=== PATIENT | male | born 1985 | race Two or more races ===

== ENCOUNTER 2024-04-09 16:48 | Emergency (ER) | payer OTHER, SELFPAY ==
[2024-04-09 17:05] VITALS: BP 157/93; PULSE 66; RESP 18; TEMP 37.3; O2SAT 98; BMI 27.3
--- NOTE | 2024-04-09 17:10 | XR_ITS ---
Examination: Right knee 4 views Technique: AP oblique lateral axial right knee 4 views Exam date and time: 11/08/2023 1720 hrs. Indications: Injury to the knee today, knee pain. Findings: No acute fracture No patellar dislocation Small knee effusion Impression: No acute fracture
[2024-04-09] MEDS: IBUPROFEN TAB 400 MG TABLET 800 MG PO (17:49)
--- NOTE | 2024-04-09 17:54 | EDNOTE_ITS ---
<Statement entered by Isabella Figueroa MD - 04/16/24 17:54> As co-signing physician, I was present and available for consult prn. I concur with the plan and care as documented by the midlevel provider. Lower Extremity Injury RME/HPI General Chief Complaint: Extremity Injury, Lower Stated Complaint: RIGHT KNEE PAIN, POSSIBLE DISLOCATION Time Seen by Provider: 04/09/24 17:08 Arrival date/time: 04/09/24 16:48 38-year-old male presents the emergency department today with complaints of right knee pain after playing basketball today patient reports he felt like he may have dislocated his knee and reduced it Limitations: no limitations Related Data Previous Rx's ?Medication ?Instructions ?Recorded Benadryl 25 MG 1 tab PO TIDPRN ALLERGY #1 tab 06/14/15 PEPCID 40MG 1 tab PO DAILY #3 tabs 06/14/15 PREDNISONE 20MG 1 tab PO DAILY #3 tabs 06/14/15 fluoxetine 10 mg capsule (Prozac) 10 mg PO QDAY #30 caps 04/11/22 lorazepam 1 mg tablet (Ativan) 0.5 mg (1/2 x 1 mg) PO BID PRN 04/11/22 agitation #20 tabs hydrocodone 5 mg-acetaminophen 325 1 tab PO BID PRN pain #10 tabs 04/09/24 mg tablet ibuprofen 800 mg tablet 800 mg PO TID PRN pain #30 tabs 04/09/24 Allergies Allergy/AdvReac Type Severity Reaction Status Date / Time shrimp Allergy Unknown Verified 06/12/15 00:38 Review of Systems Review of Systems Systems Reviewed: All systems reviewed, normal except as documented Constitutional Constitutional: Reports system reviewed and no additional complaints, except as documented, Denies fever(s) and Denies headache(s) Eyes Eyes: Reports system reviewed and no additional complaints, except as documented and Denies blurry vision ENT Ears, Nose, Mouth, and Throat: Reports system reviewed and no additional complaints, except as documented, Denies headache(s), Denies nasal congestion and Denies nasal discharge Cardiovascular Cardiovascular: Reports system reviewed and no additional complaints, except as documented, Denies chest pain and Denies dyspnea Respiratory Respiratory: Reports system reviewed and no additional complaints, except as documented, Denies chest congestion, Denies cough and Denies dyspnea Gastrointestinal Gastrointestinal: Reports system reviewed and no additional complaints, except as documented and Denies abdominal pain Musculoskeletal Musculoskeletal: Reports system reviewed and no additional complaints, except as documented, Reports arthralgias, Denies stiffness and Denies tingling Integumentary/Breasts Skin/Breast: Reports system reviewed and no additional complaints, except as documented and Denies rash Neurologic Neurologic: Reports system reviewed and no additional complaints, except as documented, Reports as per HPI, Denies headache(s) and Denies tingling Past Medical History Past Medical History NEUROLOGIC: Negative Neurological Disorders CARDIAC: Negative Cardiac Disorders Social History SMOKING STATUS: Never smoker ED Exam General Limitations: Present no limitations General appearance: Present alert and in no apparent distress Head Head exam: Present atraumatic Eye Eye exam: Present normal appearance, PERRL and EOMI ENT ENT exam: Present normal exam, normal oropharynx and mucous membranes moist Neck Neck exam: Present normal inspection, full ROM and trachea midline Chest Chest inspection: Present normal inspection and symmetric chest wall rise Respiratory Respiratory exam: Present normal lung sounds bilaterally Cardiovascular Cardiovascular exam: Present regular rate, normal rhythm and normal heart sounds Abdominal Exam Abdominal exam: Present soft and normal bowel sounds Extremities Exam Extremities exam: Present full ROM, tenderness, normal capillary refill and joint swelling; Absent pedal edema or calf tenderness Back Exam Back exam: Present normal inspection and full ROM Neurological Exam Neurological exam: Present alert, oriented X3 and CN II-XII intact Psychiatric Psychiatric exam: Present normal affect and normal mood Skin Skin exam: Present warm, dry, intact and normal color Course Quality Measures none Orders Category Date Time Status Crutches .NOW Care 04/09/24 17:40 Completed roosevelt wrap [Splint / Immobilizer] STAT Care 04/09/24 17:40 Completed XR knee comp RT 4V Stat Exams 04/09/24 17:10 Completed Ibuprofen Tab [Motrin Tab] Med 04/09/24 17:10 Discontinued 800 mg PO X1 ONE Vital Signs Vital signs: Vital Signs Temperature 99.1 F 04/09/24 17:05 Pulse Rate 66 04/09/24 17:05 Respiratory Rate 18 04/09/24 17:05 Blood Pressure 157/93 H 04/09/24 17:05 Pulse Oximetry (%) 98 04/09/24 17:05 Oxygen Delivery Method Room Air 04/09/24 17:05 O2 saturation 98% room air within normal limits Extremity Injury, Lower MDM Narrative MDM Narrative:: 38-year-old male presents the emergency department today with complaints of right knee pain after playing basketball today patient reports he felt like he may have dislocated his knee and reduced it On exam patient well-appearing patient does not appear ill or toxic patient is swelling and pain to the right knee pain is worse with movement X-ray of the right knee obtained no acute fracture dislocation noted Patient placed in Roosevelt wrap and given crutches Patient struck to follow-up with primary care doctor and or get MRI for worsening symptoms to return immediately Patient data External records reviewed:: [facility] previous records Clinical information provided by:: patient Social determinants that could affect healthcare access:: none Patient has the following chronic illnesses:: None How is presenting disease/condition affected by chronic disease/condition?: no chronic disease Evaluation data The following diagnostics were reviewed and interpreted by me:: radiology exam(s) Lab and/or radiology exams considered but not ordered:: Radiology obtain Interpretation Summary: Reviewed by me Medications / Prescriptions Medications or Prescriptions considered but not ordered:: Given Medication administrations:: Medication Administration History Discontinued Medications Ibuprofen (Ibuprofen Tab 400 Mg Tablet) 800 mg PO X1 ONE Stop: 04/09/24 17:11 Last Admin: 04/09/24 17:49 Dose: 800 mg Documented By: Given Consultations Consultation(s) initiated? (list below): No Diagnosis Extremity Injury, Lower Differential Diagnosis: acute internal derangement of knee and other (Knee sprain, knee fracture) Most likely diagnosis given after review of the tests above:: Knee sprain Admission Indicated Admission indicated?: not indicated Admission Request Was there a request for admission?: No Disposition Plan Disposition Plan: Discharge Discharge Attestation Discharge Attestation: The patient and all family members were given an opportunity to ask questions and understood the discharge instructions. Discharge instructions specifically effects, indications for sooner follow up or return to the emergency department, and the expected course of current diagnosis. Patient condition: Stable Discharge Plan Plan Patient Disposition: HOME (Self Care) Disposition Comment: Stable Prescriptions/Referrals Prescriptions/Med Rec: New ibuprofen 800 mg tablet 800 mg PO TID PRN (Reason: pain) Qty: 30 0RF hydrocodone-acetaminophen 5-325 mg tablet 1 tab PO BID MDD 10 PRN (Reason: pain) Qty: 10 0RF No Action Benadryl 25 MG 1 tab PO TIDPRN ALLERGY Qty: 1 0RF PEPCID 40MG 1 tab PO DAILY Qty: 3 0RF PREDNISONE 20MG 1 tab PO DAILY Qty: 3 0RF fluoxetine [Prozac] 10 mg capsule 10 mg PO QDAY Qty: 30 0RF lorazepam [Ativan] 1 mg tablet 0.5 mg PO BID PRN (Reason: agitation) Qty: 20 0RF Referrals: Cristi Bowen MD [Primary Care Provider] - In 1 week Problem List Clinical Impression: Right knee sprain Patient/Caregiver Discharge Instructions Education Materials: ED Knee Sprain Additional Instructions: Please follow up with your primary care doctor in the next 24-48hrs for any worsening symptoms return here immediately Print Language: Occitan Stand Alone Forms: Kiya Award Info., Patient Portal Info Letter PA/ROADSIDE MECHANIC Supervising Physician PA/ROADSIDE MECHANIC Supervising Physician: Dr. FIGUEROA
== END 2024-04-09 18:11 | disposition home or self-care (01) ==
PROVIDERS: Emergency Provider Emergency Medicine; PCP Family Medicine
DX: S83.91XA Sprain of unspecified site of right knee, initial encounter (principal); X58.XXXA Exposure to other specified factors, initial encounter; Y93.67 Activity, basketball
CPT/HCPCS: 73564; 99283; A9270